=== PATIENT | female | born 1960 | race Caucasian/White ===

== ENCOUNTER 2020-02-06 10:26 | Emergency (ER) | payer OTHER, SELFPAY ==
[2020-02-06 10:41] VITALS: BP 151/85; PULSE 70; RESP 16; TEMP 36.5; O2SAT 100
--- NOTE | 2020-02-06 10:53 | ED.GENADULT ---
HPI - General Adult General Chief complaint: Urogenital-Female Stated complaint: possible bladder infection Time Seen by Provider: 02/06/20 10:53 Source: patient Mode of arrival: ambulatory Limitations: no limitations History of Present Illness HPI narrative: 59-year-old female patient presents to the [facility] with complaints of urinary symptoms for the past 3 to 4 days. Patient states she has had some lower abdominal discomfort along with a little bit of pain with urination and notices that she has been urinating more frequently than normal. Denies any fevers. Denies any low back pain. Denies any nausea, vomiting or diarrhea. Patient states that she does not typically get UTIs often she states she might of had one about 10 years ago. Patient states that she is currently going through menopause at this time. Patient states she was unable to follow-up with her primary doctor because he is currently not seeing patients in the clinic at this time. Related Data Home Medications Medication Instructions Recorded Confirmed celecoxib 200 mg DAILY 02/06/20 02/06/20 conjugated estrogens [Premarin] 1 applic DAILY 02/06/20 02/06/20 lovastatin 40 mg DAILY 02/06/20 02/06/20 pantoprazole 40 mg PO DAILY 02/06/20 02/06/20 paroxetine HCl 20 mg PO DAILY 02/06/20 02/06/20 zolpidem 10 mg HS 02/06/20 02/06/20 Allergies Allergy/AdvReac Type Severity Reaction Status Date / Time ciprofloxacin Allergy Severe BREATHING Verified 02/06/20 10:42 DIFFICULTY Penicillins Allergy Mild MILD RASH Verified 02/06/20 10:42 Review of Systems Review of Systems: Narrative: CONSTITUTIONAL: Denies fever, chills, or sweats. EYES: Denies visual changes, redness, or discharge. ENT: Denies rhinorrhea, congestion, sore throat, or otalgia. CARDIOVASCULAR: Denies chest pain, palpitations, or edema. RESPIRATORY: Denies cough or dyspnea. GASTROINTESTINAL: Positive lower abdominal discomfort, denies nausea, vomiting, or diarrhea. GENITOURINARY: Denies dysuria or hematuria. Positive pain with urination, increase in frequency. SKIN: Denies rash or itching. MUSCULOSKELETAL: Denies back pain, joint pain, or myalgia. NEUROLOGIC: Denies headache, numbness, or weakness. PSYCHIATRIC: Denies anxiety or depression. [facility] Past Medical History Medical History (Updated 02/06/20 @ 10:59 by PAMELA Felton) Arthritis Hypercholesterolemia Low back pain Stenosis Surgical History Surgical History (Updated 02/06/20 @ 10:54 by PAMELA Felton) Hx of cholecystectomy Social History Social History Gender identity (if verbalized by the patient): Female Comments At the time of my signature I agree with nursing past medical history, surgical, social, and family history. There is no relevant family history pertinent to the presenting complaint. Exam Narrative: Exam Narrative: GENERAL: Well-appearing, well-nourished, and in no acute distress. HEAD: Normocephalic, atraumatic. EYES: PERRLA and EOMI. ENT: Nares clear, no rhinorrhea or epistaxis. Mucous membranes moist. NECK: Supple. No lymphadenopathy CHEST: Clear to auscultation. No respiratory distress. HEART: Regular rate and rhythm. No murmur heard. Normal peripheral pulses. ABDOMEN: Soft, nontender, nondistended, normal active bowel sounds. No CVA tenderness on percussion. EXTREMITIES: Normal range of motion. No edema. SKIN: Warm, dry, no rash. NEURO: No focal deficits. Alert and oriented x3. Course Vital Signs Vital signs: Vital Signs Temperature 36.5 C 02/06/20 10:41 Pulse Rate 70 02/06/20 10:41 Respiratory Rate 16 02/06/20 10:41 Blood Pressure 151/85 H 02/06/20 10:41 Pulse Oximetry 100 02/06/20 10:41 Temperature 36.5 C 02/06/20 10:41 Pulse Rate 70 02/06/20 10:41 Respiratory Rate 16 02/06/20 10:41 Blood Pressure 151/85 H 02/06/20 10:41 Pulse Oximetry 100 02/06/20 10:41 Vital signs reviewed. The patient has been informed that they may have pre-hypertensi
== END 2020-02-06 11:05 | disposition home or self-care (01) ==
PROVIDERS: Emergency Provider Nurse Practitioner Family
DX: N39.0 Urinary tract infection, site not specified (principal); E78.00 Pure hypercholesterolemia, unspecified; I10 Essential (primary) hypertension; K21.9 Gastro-esophageal reflux disease without esophagitis
CPT/HCPCS: 81003; 87077; 87086; 87088; 87186; 99213; G0463

== ENCOUNTER 2021-09-04 17:48 | Emergency (ER) | payer OTHER, SELFPAY ==
[2021-09-04 17:58] VITALS: BP 150/91; PULSE 83; RESP 18; TEMP 37.1; O2SAT 98
--- NOTE | 2021-09-04 19:01 | ED.URI ---
HPI - URI/Sore Throat General Chief Complaint: Upper Respiratory Infection Stated Complaint: INJURY Source: patient Mode of arrival: ambulatory History of Present Illness HPI Narrative: This is a 61-year-old female that presented to urgent care today with complaints of sinus congestion in her chest and head, headache, postnasal dripping and shortness of breath. According to patient she started experiencing symptoms 2 weeks ago. She did take Claritin ibuprofen Sudafed for her symptoms. The patient denies, CP, palpitation, extremity numbness, lightheadedness, dizziness, constipation, diarrhea, chills, or fever. Related Data Home Medications Medication Instructions Recorded Confirmed celecoxib 200 mg DAILY 02/06/20 09/04/21 lovastatin 40 mg DAILY 02/06/20 09/04/21 pantoprazole 40 mg PO DAILY 02/06/20 09/04/21 paroxetine HCl 20 mg PO DAILY 02/06/20 09/04/21 zolpidem 10 mg HS 02/06/20 09/04/21 loratadine 10 mg tablet 10 mg PO DAILY 11/19/20 09/04/21 Allergies Allergy/AdvReac Type Severity Reaction Status Date / Time ciprofloxacin Allergy Severe BREATHING Verified 09/04/21 18:46 DIFFICULTY Penicillins Allergy Mild MILD RASH Verified 09/04/21 18:46 Review of Systems Review of Systems: A 14 organ system Review of Systems was performed and pertinent positives included in the HPI, otherwise remaining ROS is negative. [facility] Past Medical History Medical History Ankle joint pain Anxiety Arthritis Backache Carpal tunnel syndrome Chronic GERD Depression History of bleeding ulcers (~2019) Hypercholesterolemia Hyperlipidemia Impingement syndrome of right shoulder Insomnia Left foot pain Low back pain Stenosis Menopausal symptoms Nausea Sinusitis Urinary incontinence Uterine cancer Vaginal dryness Surgical History Surgical History History of section 1984, 1985, 1986 History of repair of rotator cuff (~2018) Hx of cholecystectomy (~1999) Family History Family History Unknown Cancer Other Cerebrovascular accident Diabetes mellitus Hypertension Social History Social History Smoking status: Former smoker Gender identity (if verbalized by the patient): Female Exam Narrative: GENERAL: This is a well-nourished, well-developed patient, in no apparent distress. HEAD: normocephalic, atraumatic. EYES: PERRL. Sclera clear/white. Vision is grossly intact. EARS: External ears normal, auditory canals clear and without drainage, TMs normal without perforation. Hearing grossly intact. NOSE: External nose normal with no obvious nasal discharge, nares without redness, no rhinorrhea. THROAT: Mucous membranes moist, posterior pharynx clear. NECK: Neck supple, non-tender without lymphadenopathy, masses or thyromegaly. CARDIOVASCULAR: Regular rate and rhythm without murmurs, gallops, or rubs. RESPIRATORY: Clear to auscultation. Breath sounds equal bilaterally. No wheezes, rales, or rhonchi. GASTROINTESTINAL: Abdomen soft, non-tender, nondistended. Bowel sounds are active. No hepato-splenomegaly, or palpable masses. No guarding. SKIN: warm, intact with no suspicious lesions or rash, good texture and turgor. NEURO: awake, alert, and oriented to person, place and time. There were no obvious focal neurologic abnormalities. Steady gait EXTREMITIES: Normal range of motion. No edema. No calf tenderness. Negative Homans sign bilaterally. BACK: Nontender without deformity or crepitance. No flank tenderness. Course Course Emergency Course: Patient given doxycycline, guaifenesin, Tessalon Perles, Flonase for the treatment of cellulitis Vital Signs Vital signs: Vital Signs Temperature 98.8 F 09/04/21 17:58 Pulse Rate 83 09/04/21 17:58 Respiratory Rate 18 09/04/21 17:58 Blood
== END 2021-09-04 19:05 | disposition home or self-care (01) ==
PROVIDERS: Emergency Provider Nurse Practitioner
DX: J32.9 Chronic sinusitis, unspecified (principal); Z87.891 Personal history of nicotine dependence
CPT/HCPCS: 99213; G0463

== ENCOUNTER 2021-11-11 18:00 | Emergency (ER) | payer OTHER, SELFPAY ==
--- NOTE | 2021-11-11 18:03 | ED.SKABFB ---
HPI - Skin/Abscess/Foreign Bdy General Chief complaint: Skin/Abscess/Foreign Body Stated complaint: Insect Bite Time Seen by Provider: 11/11/21 18:06 Source: patient, RN notes reviewed and old records reviewed Mode of arrival: ambulatory Limitations: no limitations History of Present Illness HPI narrative: 61-year-old female presents to the [facility] with complaints of being bit she thinks by a spider. States it happened 2 days ago. Area was draining, now red, hot to touch. Red area noted to the lower ribs left lateral aspect chest. No treatment prior to arrival. Denies fevers, chest pain, abdominal pain. MD complaint: insect bite/sting Related Data Home Medications Medication Instructions Recorded Confirmed celecoxib 200 mg DAILY 02/06/20 11/11/21 lovastatin 40 mg DAILY 02/06/20 11/11/21 pantoprazole 40 mg PO DAILY 02/06/20 11/11/21 paroxetine HCl 20 mg PO DAILY 02/06/20 11/11/21 zolpidem 10 mg HS 02/06/20 11/11/21 loratadine 10 mg tablet 10 mg PO DAILY 11/19/20 11/11/21 Allergies Allergy/AdvReac Type Severity Reaction Status Date / Time ciprofloxacin Allergy Severe BREATHING Verified 09/04/21 18:46 DIFFICULTY Penicillins Allergy Mild MILD RASH Verified 09/04/21 18:46 Review of Systems Review of Systems: All systems reviewed & are unremarkable except as noted in HPI and below Constitutional: Constitutional: Reports no additional constitutional complaints, Denies chills and Denies fever(s) Eyes: Eyes: Reports no additional eye complaints ENT: Reports system reviewed and no additional complaints, except as documented Cardiovascular: Cardiovascular: Reports no additional cardiovascular complaints Respiratory: Respiratory: Reports no additional respiratory complaints Gastrointestinal: Gastrointestinal: Reports no additional gastrointestinal complaints Musculoskeletal: Musculoskeletal: Reports no additional musculoskeletal complaints Integumentary/Breasts: Skin/Breast: Reports as per HPI, Denies swelling, Reports skin pain and Reports wounds Neurologic: Reports system reviewed and no additional complaints, except as documented Psychiatric: Psychiatric: Reports no additional psychiatric complaints Allergic/Immunologic: Allergic/Immunologic: Reports no additional allergic/immunologic complaints PMFSH Past Medical History Medical History Ankle joint pain Anxiety Arthritis Backache Carpal tunnel syndrome Chronic GERD Depression History of bleeding ulcers (~2019) Hypercholesterolemia Hyperlipidemia Impingement syndrome of right shoulder Insomnia Left foot pain Low back pain Stenosis Menopausal symptoms Nausea Sinusitis Urinary incontinence Uterine cancer Vaginal dryness Surgical History Surgical History History of section 1984, 1985, 1986 History of repair of rotator cuff (~2018) Hx of cholecystectomy (~1999) Family History Family History Unknown Cancer Other Cerebrovascular accident Diabetes mellitus Hypertension Social History Social History Smoking status: Former smoker Gender identity (if verbalized by the patient): Female Comments At the time of my signature, I reviewed and agree with the nursing past medical, surgical, social, and family history. There is no relevant family history pertinent to the patient complaint. Exam Const: General: healthy appearing, no acute distress and alert Nutritional Appearance: well nourished and obese Orientation/consciousness: patient oriented x3 Limitations: no limitations HENMT: Head: normal to inspection Ears: external ears normal Eyes: Pupils: Equal, round and reactive pupils present Neck: Neck: normal visual inspection, no lymphadenopathy and no meningeal signs Chest: Chest palpation & in
[2021-11-11 18:16] VITALS: BP 157/97; PULSE 98; RESP 20; TEMP 36.9; O2SAT 100
== END 2021-11-11 18:21 | disposition home or self-care (01) ==
PROVIDERS: Emergency Provider Nurse Practitioner
DX: L03.313 Cellulitis of chest wall (principal); Z87.891 Personal history of nicotine dependence; M19.90 Unspecified osteoarthritis, unspecified site; K21.9 Gastro-esophageal reflux disease without esophagitis; E78.00 Pure hypercholesterolemia, unspecified; E78.5 Hyperlipidemia, unspecified; F41.9 Anxiety disorder, unspecified; F32.9 Major depressive disorder, single episode, unspecified
CPT/HCPCS: 99213; G0463